=== PATIENT | female | born 1945 | race Two or more races ===

== ENCOUNTER 2018-08-29 14:33 | Emergency (ER) | payer OTHER ==
[~2018-08-29] VITALS: Ht 154.9 cm; Wt 61.7 kg
[~2018-08-29 14:33] MED LIST: CEFADROXIL500 MG PO; FOLGARD TABLET1 EACH PO; PERCOCET 5-3251 EACH PO; ULTRACET PO; XARELTO10 MG PO; ZOLOFT50 MG PO
[2018-08-29] MEDS ORDERED: FOLIC ACID1 MG PO (14:40)
[2018-08-29] MEDS ORDERED: FOSAMAX70 MG PO (14:40)
[2018-08-29] MEDS ORDERED: ACID REDUCER75 MG PO (14:41)
== END 2018-08-29 17:36 | disposition home or self-care (01) ==
LOC: ER 14:33
DX: M25.562 Pain in left knee (principal)